=== PATIENT | male | born 1955 | race Caucasian/White ===

== ENCOUNTER 2016-10-04 17:27 | Emergency (ER) | payer OTHER | END 2016-10-04 20:20 | disposition home or self-care (01) | LOC: ER 17:27 | DX: S61.211A Laceration without foreign body of left index finger without damage to nail, initial encounter (principal); W31.2XXA Contact with powered woodworking and forming machines, initial encounter; Z79.899 Other long term (current) drug therapy; F17.210 Nicotine dependence, cigarettes, uncomplicated | CPT/HCPCS: 73140; 90471; 90715; 99070; 99282-25; 99283 ==